=== PATIENT | male | born 1965 | race Asian ===

== ENCOUNTER → 2018-12-26 | Day surgery (SDC) | payer BC ==
[~2018-12-26] MED LIST: FUROSEMIDE20 MG PO; HYOSCYAMINE 0.125 MG TAB ONE; KETAMINE HCL INJ 50 MG/ML 10 ML VIAL ONE; LIDOCAINE HCL 2% LOCAL INJ 5 ML SDV VIAL INJ ONE; METFORMIN HCL500 MG PO; MIDAZOLAM HCL 2 MG/2 ML VIAL ONE; PHYTONADIONE 10 MG/ML AMP SC ONE; PROPOFOL IV EMULSION 10 MG/ML 50 ML VIAL ONE
[2018-12-26 13:00] VITALS: BP 133/91
[2018-12-26 13:46] LABS: BASOPHILS # (AUTO) 0.1 (0.0-0.1); BASOPHILS % 0.9 % (0.0-1.0); EOSINOPHILS # (AUTO) 0.3 (0.0-0.4); EOSINOPHILS % 3.3 % (0.0-6.0); HEMATOCRIT 45.9 % (38.2-49.6); HEMOGLOBIN 15.1 g/dL (14.0-18.0); LYMPHOCYTES # (AUTO) 2.5 (1.0-3.2); LYMPHOCYTES % 31.9 % (18.0-39.1); MEAN CORPUSCULAR HEMOGLOBIN 32.5 pg (28-32); MEAN CORPUSCULAR HGB CONC 32.9 g/dL (31-35); MEAN CORPUSCULAR VOLUME 98.7 fL (81-99); MONOCYTES # (AUTO) 0.6 (0.2-0.8); MONOCYTES % 7.7 % (4.4-11.3); NEUTROPHILS # (AUTO) 4.4 (2.1-6.9); NEUTROPHILS % 55.6 % (38.7-80.0); PLATELET COUNT 212 x10e3/uL (140-360); RED BLOOD COUNT 4.65 x10e6/uL (4.3-5.7); RED CELL DISTRIBUTION WIDTH 13.2 % (11.7-14.4)
[2018-12-26 14:06] LABS: INR 0.86; PROTHROMBIN TIME 12.2 seconds (11.9-14.5)
[2018-12-26 14:19] LABS: ALANINE AMINOTRANSFERASE 22 IU/L (0-55); ALBUMIN 1.6 g/dL (3.5-5.0); ALBUMIN/GLOBULIN RATIO 0.5 (0.8-2.0); ALKALINE PHOSPHATASE 48 IU/L (40-150); ANION GAP 10.2 mmol/L (8-16); BLOOD UREA NITROGEN 8 mg/dL (7-26); BUN/CREATININE RATIO 10 (6-25); CALCIUM 8.2 mg/dL (8.4-10.2); CARBON DIOXIDE 26 mmol/L (22-29); CHLORIDE 106 mmol/L (98-107); CREATININE, SERUM 0.81 mg/dL (0.72-1.25); EST GLOMERULAR FILTRATION RATE > 60 ML/MIN (60-); GLUCOSE 109 mg/dL (74-118); POTASSIUM 4.2 mmol/L (3.5-5.1); SODIUM 138 mmol/L (136-145)
--- NOTE | 2018-12-26 19:10 | Operative Report ---
DATE OF PROCEDURE: 12/26/2018 SURGEON: Murray Silva MD PROCEDURE: Esophagogastroduodenoscopy with biopsies and colonoscopy with polypectomy. INDICATIONS FOR EGD: History of heartburn and indigestion. INDICATIONS FOR COLONOSCOPY: Colorectal cancer screening. MEDICATIONS: The patient was done under MAC, please see anesthesiologist's note. PROCEDURE IN DETAIL: With the patient in left lateral decubitus position, a flexible fiberoptic Olympus gastroscope was introduced into the esophagus under direct visualization without any difficulty. Grade 2 esophageal varices were noted. There was no active bleeding or stigmata of recent hemorrhage. The scope was then advanced with ease into the stomach traversing a small sliding hiatal hernia. The mucosa overlying the antrum and the body revealed some diffuse and intense erythema with moderate edema and biopsies were obtained and sent to stain for H pylori. A minute nodule was noted in the antrum that was biopsied. The pylorus was of normal contour and shape. It was intubated with ease and the scope was advanced all the way to the second portion of the duodenum. The scope was then withdrawn slowly. Mucosa overlying the proximal second portion and duodenal bulb grossly appeared to be within normal limits. Biopsies were obtained to rule out sprue. The scope was then withdrawn back into the stomach and retroflexed and mucosa overlying the fundus appeared to be within normal limits. The cardia was somewhat generous reflecting possibly some early cardiac varices. The scope was then straightened out. It was subsequently withdrawn. The patient tolerated the procedure well. IMPRESSION: 1. Grade 2 esophageal varices. No active bleeding or stigmata of recent hemorrhage. 2. Small sliding hiatal hernia. 3. Gastritis, biopsied. Biopsies were sent to stain for Helicobacter pylori. 4. Gastric nodule, antrum, minute, biopsied. 5. Rule out sprue. PLAN: Follow up histology. Initiate Protonix 40 mg one p.o. q.a.m. a.c. We will check hepatic panel, CBC, PT, INR. The patient will need ultrasound of the liver, as well as acute hepatitis panel. The patient was then turned around after adequate lubrication of the anal canal, a flexible fiberoptic Olympus colonoscope was inserted into the rectum with ease and advanced all the way to the cecum. One polyp was snared from the cecum. The ascending colon appeared to be within normal limits. Two polyps were hot biopsied, one polyp was snared from the transverse colon. Two polyps were hot biopsied, one polyp was snared from the descending colon. One polyp was snared and four polyps were hot biopsied in the sigmoid colon. Moderate size rectal varices were noted in the distal rectum. The scope was then retroflexed and large internal hemorrhoids were also noted. There was no active bleeding or stigmata of recent hemorrhage. The scope was then straightened out and it was subsequently withdrawn. The patient tolerated the procedure well. IMPRESSION: 1. Cecal polyp, snared. 2. Transverse colon polyps x3, one snared and two hot biopsied. 3. Descending colon polyps x3, one snared and two hot biopsied. 4. Sigmoid colon polyps x5, one snared and four hot biopsied. 5. Rectal varices. 6. Large internal hemorrhoids, none actively bleeding. A total of 12 polyps were removed. PLAN: Followup histology. The patient might benefit from a followup colonoscopy in 2 to 3 years. Murray Silva MD [facility] [place] /[id number] cc: Marielle Puri MD
--- NOTE | 2018-12-26 19:45 | Operative Report ---
DATE OF PROCEDURE: 12/26/2018 SURGEON: Murray Silva MD ADDENDUM: IMPRESSION: 1. Approximately 1-cm polypoid lesion adjacent to the right arytenoid. 2. Grade 2 esophageal varices. 3. Small sliding hiatal hernia. 4. Gastritis, biopsied. Biopsies sent to stain for H. pylori. 5. Antral nodule, biopsied. 6. Rule out sprue. PLAN: Follow up histology. Initiate Protonix 40 mg one p.o. q.a.m. a.c. Check hepatic panel, CBC, PT, and INR. The patient will need ultrasound of the liver and acute hepatitis panel. We will also need an ENT evaluation. After that with the patient turnaround, the findings on the colon remain the same. Murray Silva MD [facility] [place]/[facility] /[id number]
== END | disposition home or self-care (01) ==
LOC: OR 08:44
PROVIDERS: ATTEND Internal Medicine Gastroenterology
DX: Z12.11 Encounter for screening for malignant neoplasm of colon (principal); D12.4 Benign neoplasm of descending colon; D12.3 Benign neoplasm of transverse colon; D12.0 Benign neoplasm of cecum; K29.50 Unspecified chronic gastritis without bleeding; K22.8 Other specified diseases of esophagus; B96.81 Helicobacter pylori [H. pylori] as the cause of diseases classified elsewhere; I85.00 Esophageal varices without bleeding; K44.9 Diaphragmatic hernia without obstruction or gangrene; K31.89 Other diseases of stomach and duodenum; I86.8 Varicose veins of other specified sites; E11.9 Type 2 diabetes mellitus without complications; K64.8 Other hemorrhoids; F17.210 Nicotine dependence, cigarettes, uncomplicated; Z01.810 Encounter for preprocedural cardiovascular examination; Z79.84 Long term (current) use of oral hypoglycemic drugs
CPT/HCPCS: 36415; 43239; 45384; 45385; 80053; 82948; 85025; 85610; 93005; J2001; J2250; J2704; J3430; 45378

== ENCOUNTER → 2019-01-20 | Outpatient (CLI) | payer BC ==
[~2019-01-20] MED LIST changes: -HYOSCYAMINE 0.125 MG TAB ONE; -KETAMINE HCL INJ 50 MG/ML 10 ML VIAL ONE; -LIDOCAINE HCL 2% LOCAL INJ 5 ML SDV VIAL INJ ONE; -MIDAZOLAM HCL 2 MG/2 ML VIAL ONE; -PHYTONADIONE 10 MG/ML AMP SC ONE; -PROPOFOL IV EMULSION 10 MG/ML 50 ML VIAL ONE
--- NOTE | 2019-01-20 10:53 | Diagnostic Imaging Report ---
Right upper quadrant abdominal ultrasound Clinical History: Esophageal varices Discussion: Sonographic evaluation of the right upper quadrant of the abdomen is performed. The liver has normal size and measures 16.3 cm in length. The liver echotexture is normal, without focal mass. There is no intra or extrahepatic biliary dilatation. The common bile duct measures 2 mm. The gallbladder has normal appearance, without wall thickening, stones, or pericholecystic fluid. The main portal vein diameter is normal, measuring 10 mm. The pancreas was not well seen secondary to bowel gas. There is no ascites. The right kidney measures 13.5 cm in length and is normal in size. There is no hydronephrosis or shadowing renal calculus. In the upper pole right kidney, a 1.7 x 1.6 x 1.5 cm anechoic lesion with mildly thickened internal septation is noted most compatible with a complex cyst. Segments of the inferior vena cava and aorta visualized demonstrate no abnormality. Impression: 1. Complex cystic lesion measuring up to 1.7 cm in the right kidney as described. If indicated, CT or MR using renal mass protocol is recommended for further assessment. Signed by: Dr. Evan Viveros MD on 01/20/2019 10:49 AM
== END ==
LOC: US 08:36
PROVIDERS: ATTEND Internal Medicine Gastroenterology
DX: I85.00 Esophageal varices without bleeding (principal)
CPT/HCPCS: 76705